=== PATIENT | female | born 1985 ===

== ENCOUNTER 2017-05-25 09:50 | Emergency (ER) | payer BC, OTHER ==
[2017-05-25 09:50] VITALS: BMI 45.1
[2017-05-25 09:57] VITALS: TEMP 97.9
--- NOTE | 2017-05-25 10:13 | ED PDOC ---
Arrival/HPI - General Chief Complaint: Anxiety Time Seen by Provider: 05/25/17 10:04 Historian: Patient - History of Present Illness Narrative History of Present Illness (Text): 05/25/17 10:05 Kaelyn Du is a 31 year old female, whose past medical history includes anxiety, ptsd, presents to the emergency department complaining of shortness of breath/chest pain/ and anxiety prior to arrival. Patient reports she has had a cough due to her bronchitis, which caused shortness of breath and made her "get a panic attack." Patient denies any fever, nausea, vomiting, headache, chest pain, dizziness, or other complaints. PMD: Dr. Hammer 05/25/17 11:02 Time/Duration: Prior to Arrival Symptom Onset: Sudden Symptom Course: Unchanged Associated Symptoms (Text): cough, shortness of breath, anxiety Past Medical History - Provider Review Nursing Documentation Reviewed: Yes - Cardiac Hx Cardiac Disorders: No - Pulmonary Hx Respiratory Disorders: Yes Hx Bronchitis: Yes - Neurological Hx Neurological Disorder: No Hx Alzheimer's Disease: No - HEENT Hx HEENT Disorder: No - Renal Hx Renal Disorder: No - Endocrine/Metabolic Hx Endocrine Disorders: No - Hematological/Oncological Hx Blood Disorders: No - Integumentary Hx Dermatological Disorder: No - Musculoskeletal/Rheumatological Hx Musculoskeletal Disorders: No - Gastrointestinal Hx Gastrointestinal Disorders: Yes Hx Irritable Bowel: Yes - Genitourinary/Gynecological Hx Genitourinary Disorders: No - Psychiatric Hx Psychophysiologic Disorder: Yes Hx Anxiety: Yes Hx Depression: Yes Hx Emotional Abuse: No Hx Physical Abuse: No Hx Substance Use: No - Surgical History Hx Gastric Bypass Surgery: Yes ("lap band") Other/Comment: lap band,D&C - Anesthesia Hx Anesthesia: Yes Hx Anesthesia Reactions: No Hx Malignant Hyperthermia: No - Suicidal Assessment Feels Threatened In Home Enviroment: No Family/Social History - Physician Review Nursing Documentation Reviewed: Yes Family/Social History: Unknown Family HX Smoking Status: Current Some Days Smoker Hx Alcohol Use: No Hx Substance Use: No Hx Substance Use Treatment: No Allergies/Home Meds Allergies/Adverse Reactions: Allergies No Known Allergies Allergy (Verified 05/25/17 09:56) Home Medications: Home Meds Medication Instructions Recorded Confirmed Vilazodone HCl [Viibryd] 20 mg PO DAILY 09/19/16 05/25/17 ALPRAZolam [Xanax] 1 mg PO TID PRN 05/25/17 05/25/17 Review of Systems - Review of Systems Constitutional: absent: Fevers Respiratory: SOB, Cough Cardiovascular: absent: Chest Pain Gastrointestinal: absent: Abdominal Pain, Diarrhea, Nausea, Vomiting Genitourinary Female: absent: Dysuria Musculoskeletal: absent: Back Pain Psychiatric: Anxiety Physical Exam Vital Signs Reviewed: Yes Vital Signs Temp Pulse Resp BP Pulse Ox 05/25/17 10:59 80 18 119/73 99 05/25/17 09:50 97.9 F 68 20 135/61 100 Temperature: Afebrile Blood Pressure: Normal Pulse: Regular Respiratory Rate: Normal Appearance: Positive for: Well-Appearing, Non-Toxic, Comfortable Pain Distress: None Mental Status: Positive for: Alert and Oriented X 3 - Systems Exam Head: Present: Atraumatic, Normocephalic Pupils: Present: PERRL Extroacular Muscles: Present: EOMI Conjunctiva: Present: Normal Mouth: Present: Moist Mucous Membranes Respiratory/Chest: Present: Clear to Auscultation, Good Air Exchange. No: Respiratory Distress, Accessory Muscle Use Cardiovascular: Present: Regular Rate and Rhythm, Normal S1, S2. No: Murmurs Abdomen: Present: Normal Bowel Sounds. No: Tenderness, Distention, Peritoneal Signs Upper Extremity: Present: Normal Inspection. No: Cyanosis, Edema Lower Extremity: Present: Normal Inspection. No: Edema Neurological: Present: GCS=15, CN II-XII Intact, Speech Normal Skin: Present: Warm, Dry, Normal Color. No: Rashes Psychiatric: Present: Alert, Oriented x 3, Normal Insight, Normal Concentration , Anxious Medical Decision Making ED Course and Treatment: r/o anemia, pneumonia, anxiety 05/25/17 PERC negative EKG: Ordered, reviewed, and independently interpreted the EKG. Rate : 59 BPM Rhythm : sinus bradycardia Interpretation : No ST-segment elevations or depressions, no T-wave inversions, normal intervals. Comparison : No previous EKG for comparison. 05/25/17 11:02 pt reassesed:pt staets symptoms resolved. on phone in nad. cxr neg as read by me. pt asking for d/c. smiling in nad. 05/25/17 11:03 no si/hi/hallucinations - Lab Interpretations Lab Results: 05/25/17 10:30 05/25/17 10:30 Lab Results 05/25/17 10:30: Sodium 142, Potassium 3.7, Chloride 108 H, Carbon Dioxide 24, Anion Gap 14, BUN 12, Creatinine 0.7, Est GFR ( Amer) > 60, Est GFR (Non- Af Amer) > 60, Random Glucose 106, Calcium 8.6, Total Bilirubin 0.2, AST 29, ALT 27, Alkaline Phosphatase 92, Total Protein 7.2, Albumin 3.9, Globulin 3.4, Albumin/Globulin Ratio 1.1 05/25/17 10:30: WBC 11.0, RBC 4.58, Hgb 11.1 L, Hct 34.8 L, MCV 76.0 L, MCH 24.2 L, MCHC 31.9, RDW 16.0 H, Plt Count 345, MPV 9.9, Gran % 60.8, Lymph % ( Auto) 30.6, [place] % (Auto) 7.4 H, Eos % (Auto) 0.9 L, Baso % (Auto) 0.3, Gran # 6.70 H, Lymph # 3.4, [place] # 0.8 H, Eos # 0.1, Baso # 0.03 05/25/17 10:27: Urine Color Yellow, Urine Appearance Clear, Urine pH 7.5, Ur Specific [place] 1.020, Urine Protein Negative, Urine Glucose (UA) Negative, Urine Ketones Negative, Urine Blood Negative, Urine Nitrate Negative, Urine Bilirubin Negative, Urine Urobilinogen 0.2, Ur Leukocyte Esterase Negative, Urine HCG, Qual Negative I have reviewed the lab results: Yes - RAD Interpretation Radiology Orders: 05/25/17 10:10 CHEST PORTABLE [RAD] Stat - EKG Interpretation Interpreted by ED Physician: Yes Type: 12 lead EKG - Medication Orders Current Medication Orders: Discontinued Medications Lorazepam (Ativan) 0.5 mg IVP ONCE ONE PRN Reason: Protocol Stop: 05/25/17 10:11 Last Admin: 05/25/17 10:43 Dose: 0.5 mg IVP Administration Document 05/25/17 10:43 EQ (Rec: 05/25/17 10:44 EQ [id number]) Charges for Administration # of IVP Administrations 1 - Scribe Statement The provider has reviewed the documentation as recorded by the Anjelica Celestin Provider Scribe Attestation: All medical record entries made by the Scribe were at my direction and personally dictated by me. I have reviewed the chart and agree that the record accurately reflects my personal performance of the history, physical exam, medical decision making, and the department course for this patient. I have also personally directed, reviewed, and agree with the discharge instructions and disposition. Disposition/Present on Arrival - Present on Arrival Any Indicators Present on Arrival: No History of DVT/PE: No History of Uncontrolled Diabetes: No Urinary Catheter: No History of Decub. Ulcer: No History Surgical Site Infection Following: None - Disposition Have Diagnosis and Disposition been Completed?: Yes Diagnosis: Chest pain Disposition: HOME/ ROUTINE Disposition Time: 11:03 Condition: STABLE Discharge Instructions (ExitCare): Chest Pain (ED), Anxiety (ED) Additional Instructions: follow up with your doctor/specialist. return to er with worsening symptoms or concerns. Referrals: PCP,NO [Primary Care Provider] - Follow up with primary [facility] [Outside] - Follow up with primary [facility] [Outside] - Follow up with primary [facility] [Outside] - Follow up with primary [facility] [Outside] - Follow up with primary Gabe Jimenez MD [Staff Provider] - Follow up with primary Forms: [employer] (Ecuadorean)
[2017-05-25 10:34] LABS: PH,URINE 7.5 (4.7-8.0); URINE BILIRUBIN NEGATIVE (NEGATIVE); URINE BLOOD NEGATIVE (NEGATIVE); URINE GLUCOSE (UA) NEGATIVE (NEGATIVE); URINE KETONE NEGATIVE (NEGATIVE); URINE LEUKOCYTE ESTERASE NEGATIVE Leu/uL (NEGATIVE); URINE PROTEIN NEGATIVE mg/dL (<30 mg/dL); URINE UROBILINOGEN 0.2 E.U./dL (<1 E.U./dL)
[2017-05-25 10:36] LABS: URINE APPEARANCE CLEAR (CLEAR); URINE COLOR YELLOW (YELLOW)
[2017-05-25 10:43] LABS: BASO # 0.03 K/mm3 (0.0-2.0); BASO % 0.3 % (0.0-3.0); EOS # 0.1 (0.0-0.7); EOS % 0.9 % (1.5-5.0); GRAN # 6.7 (1.4-6.5); GRAN % 60.8 % (50.0-68.0); HEMATOCRIT 34.8 % (36.0-48.0); LYMPH # 3.4 (1.2-3.4); LYMPH % 30.6 % (22.0-35.0); MEAN CORPUSCULAR HEMOGLOBIN 24.2 pg (25.0-35.0); MEAN CORPUSCULAR HGB CONC 31.9 g/dl (31.0-37.0); MEAN PLATELET VOLUME 9.9 fl (7.0-11.0); MONO # 0.8 (0.1-0.6); MONO % 7.4 % (1.0-6.0)
[2017-05-25 10:45] LABS: ALB/GLOB RATIO 1.1 (1.1-1.8); ALKALINE PHOSPHATASE 92 U/L (38-126); ALT/SGPT 27 U/L (7-56); AST/SGOT 29 U/L (14-36); BILIRUBIN,TOTAL 0.2 mg/dL (0.2-1.3); BLOOD UREA NITROGEN 12 mg/dL (7-21); CALCIUM 8.6 mg/dL (8.4-10.5); CARBON DIOXIDE 24 mmol/L (21-33); CHLORIDE 108 mmol/L (98-107); GFR AFRICAN-AMERICAN > 60; GLUCOSE,RANDOM 106 mg/dL (70-110); POTASSIUM 3.7 mmol/L (3.6-5.0); SODIUM 142 mmol/L (132-148); TOTAL PROTEIN 7.2 g/dL (5.8-8.3)
[2017-05-25 10:59] VITALS: BP 119/73; PULSE 80; RESP 18; O2SAT 99
--- NOTE | 2017-05-25 12:34 | RAD ---
HISTORY: cp COMPARISON: A 11/03/2016 thoracic spine noted FINDINGS: LUNGS: No active pulmonary disease. PLEURA: No significant pleural effusion identified, no pneumothorax apparent. CARDIOVASCULAR: Mild OSSEOUS STRUCTURES: No significant abnormalities. VISUALIZED UPPER ABDOMEN: Normal. OTHER FINDINGS: Lap band at the GE junction is appreciated similar to a thoracic spine appearance IMPRESSION: No active pulmonary disease. Mild cardiomegaly Lap band
--- NOTE | 2017-05-26 01:56 | CARD ---
APPROVED REPORT EKG Measurement Heart [id number] <Conclusion> Sinus bradycardia with sinus arrhythmia Otherwise normal ECG
== END 2017-05-25 11:18 | disposition home or self-care (01) ==
LOC: ED 09:50
DX: R07.9 Chest pain, unspecified (principal)
CPT/HCPCS: 71010; 80053; 81003; 84703; 85025; 93005; 96374; 99283; J2060